=== PATIENT | female | born 1975 | race Two or more races ===

== ENCOUNTER 2024-10-08 22:07 | Emergency (ER) | payer MEDICAID, SELFPAY ==
[2024-10-08 22:09] VITALS: PULSE 97; RESP 15; O2SAT 98; BMI 37.0
[2024-10-08 22:14] VITALS: BP 131/73; PULSE 95; RESP 17; TEMP 37; O2SAT 100
--- NOTE | 2024-10-08 22:22 | EKG_ITS ---
[facility] Test Date: 2024-10-08 Pat Name: SINTIA BRAXTON Department: Room: - Gender: Female Cone Operator: : 1975 Requested By: Calixto Dunbar Order Number: [id number] Reading MD: Calixto Dunbar Measurements Intervals Dexter Rate: 89 P: 69 NV: 148 QRS: 50 QRSD: 85 T: 52 QT: 353 QTc: 431 Interpretive Statements SINUS RHYTHM No previous ECG available for comparison /store/S0/[id number].pdf
--- NOTE | 2024-10-08 22:22 | XR_ITS ---
Examination: AP chest single view TECHNIQUE: AP portable upright chest single view Date and time: October 08, 2024 1043 hours INDICATIONS: Shortness of breath today. FINDINGS: Mild prominence left ventricle Mild vascular congestion. No lobar pneumonia or pulmonary edema IMPRESSION: Mild vascular congestion
[2024-10-08 22:34] LABS: Lactate (Lactic Acid) 1.9 mMol/L (0.4-2.0)
--- NOTE | 2024-10-08 22:39 | XR_ITS ---
Examination: Pelvic ultrasound, transabdominal, complete Technique: Transabdominal ultrasound of the pelvis performed using grayscale imaging Date and time of exam: October 09, 2024 0103 hours INDICATIONS: Onset of pelvic pain today FINDINGS: Uterus 12.1 cm endometrial stripe 0.8 cm No discrete uterine mass no intrauterine gestation Ovaries obscured by bowel gas IMPRESSION: Enlarged uterus but no discrete uterine mass, no intrauterine gestation
[2024-10-08 22:40] LABS: Basophils # (Auto) 0.0 Thou/mm3 (0.0-0.2); Basophils % (Auto) 0 % (0-2.5); Eosinophils # (Auto) 0.3 Thou/mm3 (0.0-0.5); Eosinophils % (Auto) 3 % (0-10); Hematocrit 37.8 % (36.0-46.0); Hemoglobin 12.2 g/dL (12.0-16.0); Immature Granulocytes Auto 0.04 Thou/mm3 (0.00-0.00); Lymphocytes # (Auto) 1.9 Thou/mm3 (1.0-4.8); Lymphocytes % (Auto) 20 % (10-50); Mean Corpuscular HGB Conc 32.3 g/dl (31.0-37.0); Mean Corpuscular Hemoglobin 26.9 pg (25.0-35.0); Mean Corpuscular Volume 83 fL (80-100); Monocytes # (Auto) 0.8 Thou/mm3 (0.0-0.8); Monocytes % (Auto) 9 % (0-12); Neutrophils # (Auto) 6.5 Thou/mm3 (1.8-7.7); Neutrophils % (Auto) 68 % (37-80); Nucleated Red Blood Cell # 0.00 Thou/mm3 (0.00-0.00); Nucleated Red Blood Cell % 0 /100 WBC (0); Platelet Count 312 Thou/mm3 (140-440); RDW Standard Deviation 49.2 fL (36.4-46.3); Red Blood Count 4.53 Miln/mm3 (4.00-5.20); White Blood Count 9.6 Thou/mm3 (3.6-11.0)
--- NOTE | 2024-10-08 22:42 | PD.EDADULT ---
ED General RME/HPI General Chief complaint: Abdominal Pain Stated complaint: ABD PAIN Time Seen by Provider: 10/08/24 22:17 Arrival date/time: 10/08/24 22:07 RME / HPI RME / HPI narrative: 48-year-old female with past medical history of diabetes insulin-dependent comes into the ED with complaints of lower abdominal pain. Patient states that she started having cramping and achy abdominal pain located in the right lower abdomen. Patient stated that she normally when she gets her menstrual period she gets cramping and pain, but there is was out of proportion to previous episodes. Patient started her menstrual period today as well. She denies having any fevers, chest pain, changes in bowel movement, or burning sensation urination. Patient also mentioned that she did have a cough which causes her abdominal pain to worsen whenever she coughs for prolonged periods. Patient had an appendectomy and cholecystectomy in the past. Otherwise no other complaints at this time. Admits smoking cigarettes and marijuana, denies any illicit drugs, admits social drinking Related Data Home Medications ?Medication ?Instructions ?Recorded ?Confirmed insulin glulisine U-100 100 12 unit subcut QAM 01/16/19 04/16/19 unit/mL subcutaneous pen sitagliptin phosphate 50 1 tab PO BID 01/16/19 04/16/19 mg-metformin 1,000 mg tablet (Luis) Previous Rx's ?Medication ?Instructions ?Recorded fluconazole 150 mg tablet 150 mg PO QDAY #2 tabs 04/16/19 nystatin 100,000 unit/gram topical 1 applicatio topical BID #60 grams 04/16/19 powder ofloxacin 0.3 % eye drops 1 drp ophthalmic (eye) QID #5 mL 12/14/19 metoclopramide HCl 5 mg tablet 5 mg PO Q8H PRN nausea and 10/09/24 vomiting #6 tabs Allergies Allergy/AdvReac Type Severity Reaction Status Date / Time codeine Allergy Unknown HIVES Verified 07/16/22 08:15 naproxen Allergy Unknown HEADACHE Verified 07/16/22 08:15 Review of Systems Review of Systems Systems Reviewed: All systems reviewed, normal except as documented Past Medical History Family History OTHER FAMILY HX: Noncontributory Social History SOCIAL: Patient denies smoking, alcohol, drugs Past Medical History Comments PMH COMMENT: Insulin-dependent diabetes ED Exam Narrative Physical exam: Gen: A&O X 3, mild distress due to pain HEENT: NCAT, EOMI, Pupils reactive DHIRAJ, not icteric. External ears normal. No rhinorrhea. Moist mucous membranes. Neck: Supple, full range of motion, no observable masses, No meningeal sign. Lungs: No Respiratory distress, clear bilateral. CV: RRR, no murmurs. Abdomen: Soft, nondistended, tender in the suprapubic and RLQ with deep palpation, positive for rebound tenderness. MSK: No joint swelling, no redness, peripheral pulses presents, lumbar with no edema. Skin: No rashes, petechiae, lesions. Neuro: No focal neurological deficits appreciated, sensory and motor intact. Psych: Cooperative, appropriate mood and effect. Course Quality Measures none Orders Category Date Time Status Videotape Operator Q4H START 00 Care 10/08/24 22:22 Active Continuous Pulse Oximetry NOW Care 10/08/24 22:22 Completed EKG (ED ONLY) *Do not use* NOW Care 10/08/24 22:22 Completed CXRP [XR chest 1V portable] Stat Exams 10/08/24 22:22 Completed EKG (ED Only) Stat Exams 10/08/24 22:22 Draft US pelvic complete Stat Exams 10/08/24 22:39 Taken CBC [CBC] Stat Lab 10/08/24 22:30 Completed CMP [Comprehensive Metabolic Panel] Stat Lab 10/08/24 22:30 Completed Drug Screen,Urine Stat Lab 10/09/24 01:26 Completed HCG Qualitative,Urine Stat Lab 10/09/24 01:26 Completed Lactic Acid [Lactate (Lactic Acid)] Stat Lab 10/08/24 22:30 Completed Lipase Stat Lab 10/08/24 22:30 Completed Magnesium Stat Lab 10/08/24 22:30 Completed Procalcitonin Stat Lab 10/08/24 22:30 Completed Troponin I Stat Lab 10/08/24 22:30 Completed UA [Urinalysis] Stat Lab 10/09/24 01:26 Completed Magnesium Sulfate 2 GM Ivpb [Magnesium Sulfate Ivpb] Med 10/08/24 23:52 Discontinued 2 gm in 50 ml IV X1 Morphine Inj Med 10/08/24 23:13 Discontinued 1 mg IVP X1 ONE Vital Signs Vital signs: Vital Signs Temperature 98.6 F 10/08/24 22:14 Pulse Rate 95 10/08/24 22:14 Respiratory Rate 17 08/10/25 22:14 Blood Pressure 131/73 H 10/08/24 22:14 Pulse Oximetry (%) 100 10/08/24 22:14 Oxygen Delivery Method Room Air 10/08/24 22:14 Discharge Plan Plan Patient Disposition: HOME (Self Care) Prescriptions/Referrals Prescriptions/Med Rec: New metoclopramide HCl 5 mg tablet 5 mg PO Q8H PRN (Reason: nausea and vomiting) Qty: 6 0RF No Action Janumet 50-1,000 mg Tablet 1 tab PO BID insulin glulisine U-100 100 unit/mL Insulin Pen 12 unit SUBCUT QAM fluconazole 150 mg tablet 150 mg PO QDAY Qty: 2 0RF nystatin 100,000 unit/gram powder 1 applicatio TOPICAL BID Qty: 60 0RF ofloxacin 0.3 % drops 1 drp ophthalmic (eye) QID Qty: 5 0RF Referrals: Michael Tanner MD [Primary Care Provider] - In 1 week Problem List Clinical Impression: Abdominal pain Patient/Caregiver Discharge Instructions Other Activity Instructions:: Follow-up primary care physician within 5 days Follow-up with your [facility]IST within 5 days You have been prescribed Zofran every 6 hours as needed for pain. Okay to take Tylenol every 6 hours for pain for the next 3 days. Come back to the ED if symptoms persist or worsen or if you develop any fevers, chills, or intolerable pain. Education Materials: Abdominal Pain Print Language: Belarusian Stand Alone Forms: [place] Award Info., Patient Portal Info Letter MDM Narrative MDM hospital course: Patient was seen and evaluated upon arrival by myself. Diagnostic labs and imaging was ordered. Patient's lab were reviewed and look fairly unremarkable other than low magnesium which was repleted. UA came back positive for RBCs, but likely due to patient's ongoing menstrual period. Patient instruction also came back positive for meth and marijuana. Opiates was positive, but patient did get morphine prior to drawstring. Patient's prelim ultrasound pelvic did not show any free fluid or adnexal mass, history of this was normal in size, ovaries were not visualized at this time, but there was good flow on Doppler. Patient's pain is well-controlled at this time and she states that she feels better. At this time patient is stable enough to be discharged back home. With instructions to follow-up with primary care physician and OBGYN. Case disclosed with Attending Dr. Chriss Dunbar PGY2 Disclaimer: Even though this this note was dictated by speech recognition and even though it was carefully revised there may still be minor errors in belt loop cutter due to voice recognition software. Medication Administration(s) Medication Administration History Discontinued Medications Magnesium Sulfate (Magnesium Sulfate Ivpb) 2 gm in 50 mls @ 25 mls/hr IV X1 ONE Stop: 10/09/24 01:51 Last Infusion: 10/09/24 02:05 Dose: Infused Documented By: Admin: 10/08/24 23:57 Dose: 25 mls/hr Documented By: LIVIA Morphine Sulfate (Morphine Sulf Inj 10 Mg/Ml Vial) 1 mg IVP X1 ONE Stop: 10/08/24 23:14 Last Admin: 10/08/24 23:27 Dose: 1 mg Documented By: LIVIA
--- NOTE | 2024-10-08 22:52 | PC.NURSE ---
Addendum entered by Mildred Foley RN 10/08/24 22:59: PT STATES THAT PAIN WORSENS WITH MOVEMENT AND ADL. PT STATES SHE WAS ON THE RESTROOM WHEN THE PAIN BEGUN. Original Note: PT BIBA FROM HOME 11/08 ABDOMINAL CRAMPING THAT STARTED TODAY. PT DENIES BEING AND STATES HER LAST PERIOD WAS AROUND 28 DAYS AGO
[2024-10-08 23:06] LABS: Alanine Aminotransferase 10 U/L (10-49); Albumin, Serum 4.1 gm/dL (3.5-5.0); Albumin/Globulin Ratio 1.5 (1.2-2.2); Alkaline Phosphatase 101 U/L (46-116); Anion Gap 9 (7-16); Aspartate Amino Transferase 14 U/L (0-34); BUN/Creatinine Ratio 16 Ratio (12-20); Bilirubin,Total 0.2 mg/dL (0.3-1.2); Blood Urea Nitrogen 11 mg/dL (9-23); Calcium 9.1 mg/dL (8.3-10.6); Calcium (Corrected) 9.1 mg/dL (8.5-10.1); Carbon Dioxide 26.0 mMol/L (20.0-31.0); Chloride 104 mMol/L (98-107); Creatinine (Component) 0.7 mg/dL (0.6-1.3); Estimated Creatinine Clearance 97.9 mL/min (>60); Globulin 2.8 gm/dL (2.3-3.5); Glucose 216 mg/dL (74-106); Lipase 32 U/L (12-53); Magnesium 1.4 mg/dL (1.6-2.6); Osmolality,Calculated 283 (275-295); Potassium 3.8 mMol/L (3.4-5.1); Procalcitonin 0.07 ng/ml (0.0-0.49); Sodium 139 mMol/L (136-145); Total Protein 6.9 gm/dL (5.7-8.2); Troponin I < 0.020 ng/mL (0.0-0.045); eGFR > 60 See Note
[2024-10-08] MEDS: MORPHINE SULF INJ 10 MG/ML VIAL IVP (23:27)
[2024-10-08] MEDS: Magnesium Sulfate 2 GM Ivpb 2 GM/50 ML BAG IV (23:57)
[2024-10-09 01:28] VITALS: BP 130/68; PULSE 80; RESP 14; O2SAT 96
[2024-10-09 01:59] LABS: Collection Type, Urine Voided
[2024-10-09 02:21] LABS: Bilirubin,Urine Negative (Negative); Blood,Urine 3+ (Negative); Clarity,Urine Turbid (Clear/Hazy); Glucose, Urine 3+ (Negative); Ketones,Urine Negative (Negative); Leukocyte Esterase,Urine Positive (Negative); Nitrite,Urine Negative (Negative); PH,Urine 6.5 (5.0-7.0); Protein,Urine 1+ (Neg - Trace); RBC,Urine 3039 /hpf (0-3); Specific Gravity,Urine 1.029 (1.001-1.035); Squamous Epithelial Cell,Urine 13 /hpf (0-5); Urobilinogen,Urine 2.0 mg/dL (0.0-1.0); WBC,Urine 9 /hpf (0-5)
[2024-10-09 02:32] LABS: Color,Urine Lt Orange (Lt Yel-Yel)
[2024-10-09 02:39] LABS: HCG Qualitative,Urine Negative
[2024-10-09 02:59] LABS: Amphetamine/Methamp Scrn,U Positive (Negative); Barbiturate Screen,Urine Negative (Negative); Benzodiazepines Screen,Urine Negative (Negative); Benzoylecgonine Screen, Ur Negative (Negative); Fentanyl Screen,Urine Negative (Negative); Opiate Screen,Urine Positive (Negative); THC Screen,Urine Positive (Negative)
[2024-10-09 03:56] VITALS: BP 146/83; PULSE 86; RESP 16; TEMP 36.7; O2SAT 96
== END 2024-10-09 03:57 | disposition home or self-care (01) ==
PROVIDERS: PCP Family Medicine
DX: R10.31 Right lower quadrant pain (principal); R05.9 Cough, unspecified; F12.90 Cannabis use, unspecified, uncomplicated; E11.9 Type 2 diabetes mellitus without complications; Z90.49 Acquired absence of other specified parts of digestive tract; F17.210 Nicotine dependence, cigarettes, uncomplicated; Z79.4 Long term (current) use of insulin; Z88.5 Allergy status to narcotic agent; Z88.6 Allergy status to analgesic agent; Z79.84 Long term (current) use of oral hypoglycemic drugs
CPT/HCPCS: 36415; 71045; 76856; 80053; 80307; 81001; 81025; 83605; 83690; 83735; 84145; 84484; 85025; 93005; 99284; J2270; J3475